=== PATIENT | male | born 1980 | race Two or more races ===

== ENCOUNTER 2018-10-25 17:56 | Emergency (ER) | payer OTHER ==
[~2018-10-25] VITALS: Ht 175.3 cm; Wt 100.2 kg
[~2018-10-25 17:56] MED LIST: CARDIZEM CD180 MG; FIORICET 50-321 EACH PO; TOPROL XL25 MG
[2018-10-25] MEDS ORDERED: HYDROCHLOROTH12.5 M1 (18:01)
== END 2018-10-25 22:24 | disposition home or self-care (01) ==
LOC: ER 17:56
DX: J01.00 Acute maxillary sinusitis, unspecified (principal); R51 Headache

== ENCOUNTER → 2019-09-05 14:24 | Outpatient (CLI) | payer OTHER ==
[~2019-09-05 14:24] MED LIST changes: +HYDROCHLOROTH12.5 M1
== END | disposition home or self-care (01) ==
LOC: LAB 14:24
DX: L02.415 Cutaneous abscess of right lower limb (principal); L02.31 Cutaneous abscess of buttock

== ENCOUNTER → 2019-12-04 13:46 | Outpatient (CLI) | payer OTHER | END | disposition home or self-care (01) | LOC: LAB 13:46 | PROVIDERS: ATTEND Specialist | DX: L02.415 Cutaneous abscess of right lower limb (principal) ==

== ENCOUNTER 2022-09-28 14:13 | Outpatient (CLI) | payer OTHER | END 2022-09-28 14:14 | disposition home or self-care (01) | LOC: LAB 14:13 | PROVIDERS: ATTEND Specialist | DX: L02.91 Cutaneous abscess, unspecified (principal) ==

== ENCOUNTER 2022-11-01 10:07 | Emergency (ER) | payer OTHER ==
[~2022-11-01] VITALS: Ht 177.8 cm; Wt 104.3 kg
== END 2022-11-01 15:29 | disposition home or self-care (01) ==
LOC: ER 10:07
DX: J06.9 Acute upper respiratory infection, unspecified (principal); J40 Bronchitis, not specified as acute or chronic; Z20.822 Contact with and (suspected) exposure to COVID-19

== ENCOUNTER 2024-05-05 11:09 | Outpatient (CLI) | payer OTHER | END 2024-05-05 11:14 | disposition home or self-care (01) | LOC: LAB 11:09 | PROVIDERS: ATTEND Specialist | DX: L02.91 Cutaneous abscess, unspecified (principal) ==